=== PATIENT | female | born 2000 | race Caucasian/White ===

== ENCOUNTER 2023-08-22 10:24 | Emergency (ER) | payer SELFPAY | END 2023-08-22 12:00 | disposition home or self-care (01) | LOC: JD.ED 10:24 | DX: R73.9 Hyperglycemia, unspecified (principal); F32.A Depression, unspecified; F41.9 Anxiety disorder, unspecified; Z88.0 Allergy status to penicillin; Z88.8 Allergy status to other drugs, medicaments and biological substances; Z91.018 Allergy to other foods; Z79.4 Long term (current) use of insulin | CPT/HCPCS: 82947; 99284 ==